=== PATIENT | male | born 1985 | race Hispanic/Latino ===

== ENCOUNTER 2017-12-02 09:52 | Emergency (ER) | payer OTHER ==
[2017-12-02 11:06] LABS: Basophils # (Auto) 0.1 K/mm3 (0.0-0.1); Basophils % (Auto) 0.6 % (0.0-1.8); Eosinophils # (Auto) 0.1 K/mm3 (0.0-0.4); Eosinophils % (Auto) 0.9 % (0.0-4.3); Hematocrit 45.9 % (35.5-45.6); Hemoglobin 16.1 gm/dl (11.8-15.2); Lymphocytes % (Auto) 11.5 % (13.4-35.0); Mean Corpuscular HGB Conc 35 % (32-34); Mean Corpuscular Hemoglobin 33 pg (28-32); Mean Corpuscular Volume 93 fl (84-94); Monocytes % (Auto) 11.4 % (0.0-7.3); Platelet Count 268 K/mm3 (140-440); Red Blood Count 4.92 M/mm3 (3.65-5.03); Red Cell Distribution Width 13.5 % (13.2-15.2)
--- NOTE | 2017-12-02 11:08 | Emergency Department Report ---
ED Psych HPI - General Chief Complaint: Anxiety Stated Complaint: PTSD Time Seen by Provider: 12/02/17 10:39 Source: patient, EMS Mode of arrival: Ambulatory - History of Present Illness Initial Comments: 32-year-old male with a history of mental health disorder. He states he's been admitted to various mental health hospitals. He states he was at [facility] 2 days ago. Prior to that he fell and hit his head and a [employer] [place] station. I do not know if he had a workup at [place] at that time. He stated that he was there for a few hours. He tells me he had a previous tetanus shot. He told me that he was sitting down and momentarily passed out but did not lose consciousness for any length of time. The episode appeared to be near syncopal. He does recall hitting his head. He is not complaining of headache or neck pain or any other injuries. He walked into this facility and actually has already walked out. I asked the patient if he had been on psychiatric medication in the past and he admitted that he was. He was familiar with Haldol and Seroquel at a minimum. He is noncompliant with his psychiatric medication. The patient is able to communicate normally although he does have apparently have what may be delusions. He states he communicates with God. He states that he wants to get back to his home in [facility]. He is not violent nor agitated. He is not suicidal. He is not actively delusional or hallucinating. He was seen by the mental health counselor. Complaint: other -: year(s) Associated Psychiatric Symptoms: delusions History of same: Yes Quality: intermittent Improves With: none Worsens With: none Context: not taking psychiatric Associated Symptoms: denies other symptoms Treatments Prior to Arrival: none - Related Data Allergies Allergy/AdvReac Type Severity Reaction Status Date / Time No Known Allergies Allergy Unverified 12/02/17 10:02 ED Review of Systems ROS: Stated complaint: PTSD Other details as noted in HPI Constitutional: denies: chills, fever Eyes: denies: eye pain, eye discharge, vision change ENT: denies: ear pain, throat pain Respiratory: denies: cough, shortness of breath, wheezing Cardiovascular: syncope (or near syncopal episode). denies: chest pain, palpitations Endocrine: no symptoms reported Gastrointestinal: denies: abdominal pain, nausea, diarrhea Genitourinary: denies: urgency, dysuria Musculoskeletal: denies: back pain, joint swelling, arthralgia Skin: denies: rash, lesions Neurological: denies: headache, weakness, paresthesias Psychiatric: denies: anxiety, depression Hematological/Lymphatic: denies: easy bleeding, easy bruising ED Past Medical Hx - Past Medical History Previous Medical History?: No Hx Psychiatric Treatment: Yes - Surgical History Past Surgical History?: No - Social History Smoking Status: Former Smoker Substance Use Type: None ED Physical Exam - General Limitations: No Limitations General appearance: alert, in no apparent distress - Head Head exam: Present: normocephalic, other (healing abrasions right forehead no signs of infection no hematoma) - Eye Eye exam: Present: normal appearance, PERRL, EOMI. Absent: scleral icterus - ENT ENT exam: Present: mucous membranes moist - Neck Neck exam: Present: normal inspection. Absent: tenderness, meningismus - Respiratory Respiratory exam: Present: normal lung sounds bilaterally. Absent: respiratory distress - Cardiovascular Cardiovascular Exam: Present: regular rate, normal rhythm. Absent: systolic murmur, diastolic murmur, rubs, gallop - GI/Abdominal GI/Abdominal exam: Present: soft, normal bowel sounds. Absent: distended, tenderness, guarding, rebound, rigid - Rectal Rectal exam: Present: deferred - Extremities Exam Extremities exam: Present: normal inspection, normal capillary refill. Absent: tenderness - Back Exam Back exam: Present: normal inspection - Neurological Exam Neurological exam: Present: alert, oriented X3, CN II-XII intact, normal gait. Absent: motor sensory deficit - Psychiatric Psychiatric exam: Present: normal mood, flat affect - Skin Skin exam: Present: warm, dry, intact, normal color. Absent: rash ED Course Vital Signs 12/02/17 12/02/17 10:02 10:54 Temperature 98.4 F 98.3 F Pulse Rate 83 103 H Respiratory 18 16 Rate Blood Pressure 127/87 Blood Pressure 129/93 [Left] O2 Sat by Pulse 100 100 Oximetry - Reevaluation(s) Reevaluation #1: The patient walked out of the emergency department and was followed by the nurse. He was brought back in. He told me that he was a previous and an earlier conversation. I told him that [facility] and see what was available to him. I told him that we would do a CAT scan of his head if this had not been recently done. I told him that we would initiate a psychiatric medication for him. I conferred with the mental health counselor who stated that he had no 1013 criteria. After he was thoroughly counseled as to our desire to help him in the above manners and with elementary school social worker, he left for the second time. Being that he had no 1013 criteria, this is not reported to the police. He does not appear to be a danger to himself or others. Certainly if he was cooperative he would've been given medication, and nourishment and a period of observation as well as continued evaluation and elementary school social worker. This was not an opportunity because the patient was counseled and had mental capacity to refuse care which he did 2. 12/02/17 11:09 Critical care attestation.: If time is entered above; I have spent that time in minutes in the direct care of this critically ill patient, excluding procedure time. ED Disposition Clinical Impression: Psychiatric disorder, Homelessness Disposition: Z-07 ELOPED Is pt being admited?: No Does the pt Need Aspirin: No Condition: Stable Time of Disposition: 11:12
[2017-12-02 11:26] LABS: BUN/Creatinine Ratio 28; Blood Urea Nitrogen 22 mg/dL (9-20); Calcium 9.9 mg/dL (8.4-10.2); Hemolysis Index 5
[2017-12-02 11:28] LABS: Bilirubin,Urine NEG (Negative); Blood,Urine NEG (Negative); Color,Urine Yellow (Yellow); Mucus,Urine FEW /HPF; Protein,Urine <15 mg/dL mg/dL (Negative); Urobilinogen,Urine < 2.0 mg/dL (<2.0)
[2017-12-02 11:47] LABS: Amphetamine Screen,Urine PRESUMPTIVE NEGATIVE; Benzodiazepines Screen,Urine PRESUMPTIVE NEGATIVE; Cannabinoid Screen,Urine PRESUMPTIVE NEGATIVE; Cocaine Screen,Urine PRESUMPTIVE NEGATIVE; Methadone Screen,Urine PRESUMPTIVE NEGATIVE; Opiate Screen,Urine PRESUMPTIVE NEGATIVE
[2017-12-02] MEDS ORDERED: GEODON IM ONE ×2 (14:21→15:02)
[2017-12-02] MEDS ORDERED: MILK OF MAGNESIA PO PRN (15:03)
[2017-12-02] MEDS ORDERED: TYLENOL PO PRN (15:03)
[2017-12-02] MEDS ORDERED: ALUM-MAG HYDROX-SIMETH 200-200-20MG/5ML PO PRN (15:03)
[2017-12-02] MEDS ORDERED: ATIVAN PO ONE (15:04)
[2017-12-02] MEDS ORDERED: ATIVAN IM PRN (15:05)
[2017-12-02] MEDS ORDERED: GEODON IM PRN (15:05)
--- NOTE | 2017-12-02 15:46 | Cat Scan Report ---
FINAL REPORT PROCEDURE: CT HEAD/BRAIN WO CON TECHNIQUE: Computerized tomography of the head was performed without contrast material. HISTORY: head trauma COMPARISON: No prior studies are available for comparison. FINDINGS: There is no CT evidence of intracranial mass, hemorrhage, acute territorial infarction, or hydrocephalus. The intracranial arteries are symmetric in density. There is fluid in the left maxillary sinus. The mastoids are aerated. No acute fracture is identified IMPRESSION: No CT evidence of acute intracranial abnormality. Left maxillary sinus fluid
[2017-12-02] MEDS: GEODON PO SCH ×2 (19:18→21:37)
[2017-12-03] MEDS: GEODON PO SCH ×2 (10:06→22:00)
--- NOTE | 2017-12-03 12:04 | Consultation ---
History of Present Illness - Reason for Consult Consult date: 12/03/17 Reason for consult: Mental Health Evaluation Requesting physician: KERWIN HAY - Chief Complaint Chief complaint: "I want help" - History of Present Psychiatric Illness 32-year-old male with a history of mental health disorder. He states he's been admitted to various mental health hospitals. Today the patient is calm, but disorganized and tangent during the assessment. He could not logically tell me about his actions the past 48 to 72 hours. His conversation wasn't lucid, but he did state a hx of substance abuse and a lack of sleep. Throughout the interview the patient had to be redirected several times to stay on topic. He would not confirm or deny AH's. He denies SI's when asked. Per the ER note, the patient was discharged from the ER 12/02/2017 and was found randomly knocking on doors in the community by the police. This patient is a poor historian at this time. No gestures of SI/HI's. No indication of side effects of Geodon. Medications and Allergies Allergies Allergy/AdvReac Type Severity Reaction Status Date / Time No Known Allergies Allergy Unverified 12/02/17 10:02 Active Meds: Active Medications Acetaminophen (Tylenol) 650 mg PO Q4HR PRN PRN Reason: Pain MILD(1-3)/Fever >100.5/SHANNON Al Hydrox/Mg Hydrox/Simethicone (Alum-Mag Hydrox-Simeth [id number]/5ml) 30 ml PO Q4HR PRN PRN Reason: Indigestion Lorazepam (Ativan) 1 mg IM Q12H PRN PRN Reason: Agitation Magnesium Hydroxide (Milk Of Magnesia) 30 ml PO Q12HR PRN PRN Reason: Constipation Ziprasidone (Geodon) 20 mg PO BID TAMMY Last Admin: 12/03/17 10:06 Dose: 20 mg Ziprasidone (Geodon) 10 mg IM Q2H PRN PRN Reason: Agitation Past psychiatric history - Past Medical History Past Medical History: No medical history Past Surgical History: No surgical history - past Psychiatric treatment and history psychiatric treatment history: Denies a psy hx. He could nt confirm or deny a fam psy hx. - Social History Social history: other (Homeless) Mental Status Exam - Vital signs Last Vital Signs Temp 98.5 F 12/03/17 08:02 Pulse 104 H 12/03/17 08:02 Resp 16 12/03/17 08:02 BP 126/77 12/03/17 08:02 Pulse Ox 97 12/03/17 08:02 - Exam Narrative exam: MSE: Appearance: calm Behavior: regular eye contact Speech: regular rate and tone Mood: "down" Affect: blunted Thought Process: disorganized Thought Content: denies SI/HI's,AVH's Motor Activity: lying in bed Cognition: A/O x 3 Insight: poor Judgment: poor Results Result Diagrams: 12/02/17 10:47 12/02/17 10:47 Abnormal lab results 12/03/17 Range/Units 11:15 Total Creatine Kinase 241 H (55-170) units/L All other labs normal. Assessment and Plan Assessment and plan: Impression: Unspecified Mood Do with psy features. Today the patient is calm during the assessment. UDS negative. DDx: Schizophrenia, R/O Schizoaffective DO, Bipolar DO with psychosis Recommendations/Plan: Continue 1013 with placement to inpatient psy services. Continue Geodon 20 mg PO BID for mood/psychosis and start Benadryl 25 mg PO HS PRN for sleep. Discussed possible metabolic side effects of Geodon with patient.
[2017-12-03] MEDS ORDERED: BENADRYL PO PRN (12:08)
[2017-12-04] MEDS: GEODON PO SCH ×2 (11:38→22:25)
--- NOTE | 2017-12-04 14:24 | Progress Note ---
Subjective - Reason for Consult Consult date: 12/04/17 Reason for consult: Psychiatry Follow-up - Chief Complaint Chief complaint: "Hello" 32-year-old male with a history of mental health disorder. He states he's been admitted to various mental health hospitals. Today the patient is calm and cooperative during the assessment. He is more lucid today than yesterday. He stated that he attempted suicide when he was discharged from the [facility] 2011 for substance abuse. He stated being homeless. He stated getting his life together is priority. He denies SI/HI's and AVH's. He denies any side effects of his medication. Mental Status Exam - Vital signs Last Vital Signs Temp 98.5 F 12/03/17 08:02 Pulse 104 H 12/03/17 08:02 Resp 16 12/03/17 08:02 BP 126/77 12/03/17 08:02 Pulse Ox 97 12/03/17 08:02 - Exam Narrative exam: MSE: Appearance: calm Behavior: regular eye contact Speech: regular rate and tone Mood: "I don't know" Affect: blunted Thought Process: circumstantial Thought Content: denies SI/HI's,AVH's Motor Activity: lying in bed Cognition: A/O x 3 Insight: variable Judgment: variable Assessment and Plan Impression: Unspecified Mood DO with psy features. Today the patient is calm during the assessment. UDS negative. DDx: Schizophrenia, R/O Schizoaffective DO, Bipolar DO with psychosis Recommendations/Plan: Continue 1013 with placement to inpatient psy services. Continue Geodon 20 mg PO BID for mood/psychosis and Benadryl 25 mg PO HS PRN for sleep. Discussed possible metabolic side effects of Geodon with patient.
[2017-12-05] MEDS: GEODON PO SCH ×2 (11:49→22:09)
--- NOTE | 2017-12-05 14:57 | Progress Note ---
Subjective - Reason for Consult Consult date: 12/05/17 Reason for consult: Psychiatric Follow-up Evaluation - Chief Complaint Chief complaint: "Hello" 32-year-old male with a history of mental health disorder. He states he's been admitted to various mental health hospitals. Today the patient is calm and cooperative during the assessment. He is more lucid today than yesterday. He stated that he attempted suicide when he was discharged from the [facility] 2011 for substance abuse. He stated being homeless. He stated getting his life together is priority. He denies SI/HI's and AVH's. He denies any side effects of his medication. Mental Status Exam - Vital signs Last Vital Signs Temp 98.3 F 12/05/17 08:17 Pulse 106 H 12/05/17 08:17 Resp 18 12/05/17 08:17 BP 139/103 12/05/17 08:17 Pulse Ox 93 12/05/17 08:17
--- NOTE | 2017-12-06 09:21 | Progress Note ---
Subjective - Reason for Consult Consult date: 12/06/17 Reason for consult: Psychiatry Follow-up - Chief Complaint Chief complaint: "I got some sleep" 32-year-old male with a history of mental health disorder. He states he's been admitted to various mental health hospitals. Today the patient is calm and cooperative during the assessment. The patient is less lucid today than the last assessment. He did state that he got sleep last night. Some of his answers to question was not logical. He denies SI/HI's and AVH's. He denies any side effects from his medications. Mental Status Exam - Vital signs Last Vital Signs Temp 99.1 F 12/05/17 21:47 Pulse 88 12/05/17 21:47 Resp 18 12/05/17 21:47 BP 128/65 12/05/17 21:47 Pulse Ox 97 12/05/17 21:47 - Exam Narrative exam: MSE: Appearance: calm, cooperative Behavior: regular eye contact Speech: regular rate and tone Mood: "okay" Affect: blunted Thought Process: disorganized Thought Content: denies SI/HI's and AVH's Motor Activity: lying in bed Cognition: A/O x 3 Insight: poor Judgment: poor Assessment and Plan Impression: Unspecified Mood DO with psy features. Today the patient is calm and cooperative during the assessment. UDS negative. DDx: Schizophrenia, R/O Schizoaffective DO, Bipolar DO with psychosis Recommendations/Plan: Continue 1013 with placement to inpatient psy services. Increased Geodon to 40 mg PO BID for mood/psychosis and continue Benadryl 25 mg PO HS PRN for sleep. Discussed possible metabolic side effects of Geodon with patient.
[2017-12-06] MEDS: GEODON PO SCH ×2 (10:30→22:53)
[2017-12-07] MEDS: GEODON PO SCH (10:47)
[2017-12-07 11:10] VITALS: BP 134/93
--- NOTE | 2017-12-07 11:27 | Progress Note ---
Subjective - Reason for Consult Consult date: 12/07/17 Reason for consult: Psychiatry Follow-up - Chief Complaint Chief complaint: "Jessicalo" 32-year-old male with a history of mental health disorder. He states he's been admitted to various mental health hospitals. Today the patient is calm and during the assessment. The patient is still disorganized and not lucid during the interview. He had to be redirected several times to keep him on topic, possibly responding to some type of stimuli. He denies SI/HI's and AVH's. No indications of side effects from his medications. Mental Status Exam - Vital signs Last Vital Signs Temp 97.4 F L 12/07/17 10:00 Pulse 100 H 12/07/17 10:00 Resp 20 12/07/17 10:00 BP 134/93 12/07/17 10:00 Pulse Ox 98 12/07/17 10:00 - Exam Narrative exam: MSE: Appearance: calm Behavior: regular eye contact Speech: regular rate and tone Mood: "okay" Affect: blunted Thought Process: disorganized Thought Content: denies SI/HI's and AVH's Motor Activity: lying in bed Cognition: A/O x 3 Insight: poor Judgment: poor Assessment and Plan Impression: Unspecified Mood DO with psy features. Today the patient is calm and cooperative during the assessment. UDS negative. DDx: Schizophrenia, R/O Schizoaffective DO, Bipolar DO with psychosis Recommendations/Plan: Continue 1013 with placement to [facility] today. Continue Geodon to 40 mg PO BID for mood/psychosis and continue Benadryl 25 mg PO HS PRN for sleep. Discussed possible metabolic side effects of Geodon with patient.
== END 2017-12-07 12:15 ==
LOC: EEVIPCON 09:52 → ED 09:52
DX: F23 Brief psychotic disorder (principal); Z59.0 Homelessness; Z87.891 Personal history of nicotine dependence
CPT/HCPCS: 36415; 70450; 80048; 80307; 81001; 82550; 83735; 85025; 96372; 99284; G0480; J2060; J3486; 80320